=== PATIENT | female | born 1940 | race Caucasian/White ===

== ENCOUNTER 2020-06-23 05:01 | Emergency (ER) | payer MEDICARE ==
[2020-06-23] MEDS ORDERED: Sodium Chloride 0.9% 10 ML Syringe FLUSH PRN (05:22)
--- NOTE | 2020-06-23 05:30 | EDM.PDOC ---
ED HPI GENERAL MEDICAL PROBLEM - General Stated Complaint: CHEST PAIN Time Seen by Provider: 06/23/20 05:27 Source of Information: Reports: Patient History Limitations: Reports: No Limitations - History of Present Illness INITIAL COMMENTS - FREE TEXT/NARRATIVE: 80 yo white female with complaints of sudden onset of chest pain this morning when she woke up to use the bathroom. She describes it as heaviness,and pressure in the chest,associated with nausea,and lightheadedness.She took ASA,and nitro was given by EMS,which seemed to alleviate the symptoms. Love has a h/o of GERD, HTN,CKD,CHF,with recent reduction of her Lasix dose( Wednesday) due to worsening kidney function - Related Data Allergies Allergy/AdvReac Type Severity Reaction Status Date / Time codeine Allergy Cannot Verified 06/23/20 07:13 Remember doxycycline Allergy Cannot Verified 06/23/20 07:13 Remember erythromycin base Allergy Cannot Verified 06/23/20 07:13 [Erythromycin Base] Remember hydrocodone Allergy Cannot Verified 06/23/20 07:13 Remember indomethacin Allergy Cannot Verified 06/23/20 07:13 Remember loratadine [From Claritin] Allergy Cannot Verified 06/23/20 07:13 Remember Penicillins Allergy Cannot Verified 06/23/20 07:13 Remember propoxyphene Allergy Cannot Verified 06/23/20 07:13 Remember ED ROS GENERAL - Review of Systems Review Of Systems: Comprehensive ROS is negative, except as noted in HPI. ED EXAM, GENERAL - Physical Exam Exam: See Below Exam Limited By: No Limitations General Appearance: Alert, WD/WN, No Apparent Distress Ears: Normal External Exam Nose: Normal Inspection Throat/Mouth: Normal Inspection Head: Atraumatic Neck: Normal Inspection Respiratory/Chest: No Respiratory Distress, Lungs Clear Cardiovascular: Normal Peripheral Pulses, Regular Rate, Rhythm Extremities: Normal Inspection EKG INTERPRETATION Rhythm: NSR [place]: Normal QRS: LBBB Comparison: NA - No Prior EKG Course - Vital Signs Last Recorded V/S: Last Vital Signs Temp Pulse Resp BP 106/55 L 06/23/20 06:13 Pulse Ox - Orders/Labs/Meds Orders: Active Orders 24 hr Category Date Time Status EKG Documentation Completion [RC] ASDIRECTED Care 06/23/20 05:22 Active Chest 1V Frontal [CR] Stat Exams 06/23/20 05:22 Taken PRO B-TYPE NATRIUR PEPT,BNPPRO [CHEM] Stat Lab 06/23/20 06:20 Received Sodium Chloride 0.9% [Saline Flush] Med 06/23/20 05:22 Active 10 ml FLUSH ASDIRECTED PRN Peripheral IV Insertion Adult [OM.PC] Routine Oth 06/23/20 05:22 Ordered EKG 12 Lead [EK] Routine Ther 06/23/20 05:22 Ordered Medication Orders Sodium Chloride (Saline Flush) 10 ml FLUSH ASDIRECTED PRN PRN Reason: Keep Vein Open Labs: Laboratory Tests 06/23/20 06/23/20 06/23/20 Range/Units 06:20 06:20 06:20 WBC 7.2 (4.5-12.0) X10-3/uL RBC 3.86 (3.23-5.20) x10(6)uL Hgb 11.7 (11.5-15.5) g/dL Hct 34.8 (30.0-51.3) % MCV 90.2 (80-96) fL MCH 30.3 (27.7-33.6) pg MCHC 33.6 (32.2-35.4) g/dL RDW 13.1 (11.5-15.5) % Plt Count 278 (125-369) X10(3)uL MPV 6.7 L (7.4-10.4) fL Neut % (Auto) 55.8 (46-82) % Lymph % (Auto) 19.1 (13-37) % [place] % (Auto) 10.2 (4-12) % Eos % (Auto) 14 H (1.0-5.0) % Baso % (Auto) 1 (0-2) % Neut # (Auto) 4.1 (1.6-8.3) # Lymph # (Auto) 1.4 (0.6-5.0) # [place] # (Auto) 0.7 (0.0-1.3) # Eos # (Auto) 1.0 H (0.0-0.8) # Baso # (Auto) 0.0 (0.0-0.2) # Sodium 137 (135-145) mmol/L Potassium 4.0 (3.5-5.3) mmol/L Chloride 102 (100-110) mmol/L Carbon Dioxide 24 (21-32) mmol/L BUN 31 H (7-18) mg/dL Creatinine 4.5 H* (0.55-1.02) mg/dL Est Cr Clr Drug Dosing TNP Estimated GFR (MDRD) 9 L (>60) BUN/Creatinine Ratio 6.9 L (9-20) Glucose 93 (80-116) mg/dL Calcium 9.1 (8.6-10.2) mg/dL Troponin I 537.4 H* (4.0-60.3) pg/mL Meds: Medications Generic Name Dose Route Start Last Admin Trade Name Freq PRN Reason Stop Dose Admin Sodium Chloride 10 ml 06/23/20 05:22 Saline Flush FLUSH ASDIRECTED PRN Keep Vein Open Discontinued Medications Generic Name Dose Route Start Last Admin Trade Name Freq PRN Reason Stop Dose Admin Nitroglycerin 0.4 mg 06/23/20 06:12 06/23/20 06:13 Nitrostat SL 06/23/20 06:13 0.4 mg ONETIME ONE Administration Departure - Departure Time of Disposition: 07:13 Disposition: DC/Tfer to Acute Hospital 02 Reason for Transfer *Q: Primary PCI Indicated Condition: Good Clinical Impression: Chest pain Referrals: Neo Garcia MD [Primary Care Provider] - Sepsis Event Note (ED) - Focused Exam Vital Signs: Vital Signs BP 06/23/20 06:13 106/55 L - Problem List & Annotations (1) Chest pain SNOMED Code(s): 38887931 Code(s): R07.9 - CHEST PAIN, UNSPECIFIED Status: Acute Current Visit: Yes Qualifiers: Chest pain type: chest pain on breathing Qualified Code(s): R07.1 - Chest pain on breathing; R07.81 - Pleurodynia (2) CKD (chronic kidney disease) SNOMED Code(s): 536506505 Code(s): N18.9 - CHRONIC KIDNEY DISEASE, UNSPECIFIED Status: Acute Current Visit: Yes Qualifiers: Chronic kidney disease stage: stage 2 (mild) Qualified Code(s): N18.2 - Chronic kidney disease, stage 2 (mild) (3) CKD (chronic kidney disease) SNOMED Code(s): 302592523 Code(s): N18.9 - CHRONIC KIDNEY DISEASE, UNSPECIFIED Status: Acute Current Visit: Yes Qualifiers: Chronic kidney disease stage: stage 3 (moderate) Qualified Code(s): N18.3 - Chronic kidney disease, stage 3 (moderate) (4) NSTEMI (non-ST elevated myocardial infarction) SNOMED Code(s): 59729993 Code(s): I21.4 - NON-ST ELEVATION (NSTEMI) MYOCARDIAL INFARCTION Status: Acute Current Visit: Yes - Problem List Review Problem List Initiated/Reviewed/Updated: Yes - My Orders Last 24 Hours: My Active Orders 06/23/20 05:22 EKG Documentation Completion [RC] ASDIRECTED Chest 1V Frontal [CR] Stat Sodium Chloride 0.9% [Saline Flush] 10 ml FLUSH ASDIRECTED PRN Peripheral IV Insertion Adult [OM.PC] Routine EKG 12 Lead [EK] Routine 06/23/20 06:20 PRO B-TYPE NATRIUR PEPT,BNPPRO [CHEM] Stat - Assessment/Plan Last 24 Hours: My Active Orders 06/23/20 05:22 EKG Documentation Completion [RC] ASDIRECTED Chest 1V Frontal [CR] Stat Sodium Chloride 0.9% [Saline Flush] 10 ml FLUSH ASDIRECTED PRN Peripheral IV Insertion Adult [OM.PC] Routine EKG 12 Lead [EK] Routine 06/23/20 06:20 PRO B-TYPE NATRIUR PEPT,BNPPRO [CHEM] Stat Plan: I called Cardiology,they recommend heparin drip,ASA,and a transfer to the [facility] [place].
[2020-06-23] MEDS: Nitroglycerin 0.4 MG Tab.SL SL ONE (06:13)
[2020-06-23 06:14] VITALS: BP 106/55
[2020-06-23] MEDS: Heparin Sodium 5,000 Units/ML Vial IVPUSH ONE (07:45)
[2020-06-23] MEDS: Heparin Sodium/0.45% NaCl 25,000 UNITS/500 ML BAG IV SCH (07:47)
== END 2020-06-23 08:25 ==
LOC: FB.ED 05:01
DX: R07.89 Other chest pain (principal); R42 Dizziness and giddiness; I13.0 Hypertensive heart and chronic kidney disease with heart failure and stage 1 through stage 4 chronic kidney disease, or unspecified chronic kidney disease; I50.9 Heart failure, unspecified; N18.9 Chronic kidney disease, unspecified; R11.0 Nausea; Z88.5 Allergy status to narcotic agent; Z88.1 Allergy status to other antibiotic agents; Z88.8 Allergy status to other drugs, medicaments and biological substances; Z88.0 Allergy status to penicillin
CPT/HCPCS: 36415; 71045; 80048; 83880; 84484; 85025; 85610; 85730; 93005; 93010; 96365; 99285; 99285-25; A9270-GY; J1644

== ENCOUNTER 2020-09-19 08:54 | Emergency (ER) | payer MEDICARE ==
[~2020-09-19 08:54] MED LIST: EPINEPHrine 1:10,000 1 MG/10 ML Syringe IVPUSH ONE
[2020-09-19] MEDS ORDERED: Amiodarone 150 MG/3 ML SDV IVPUSH ONE (08:56)
[2020-09-19] MEDS ORDERED: Atropine 0.1 MG/ML 10 ML Syringe IVPUSH ONE (09:16)
[2020-09-19] MEDS ORDERED: Midazolam 1 MG/ML 2 ML SDV ONE (09:36)
[2020-09-19 09:37] LABS: HCO3 VENOUS,POC 18 mmol/L (21-29); PCO2 VENOUS,POC 74 mmHg (41-51)
[2020-09-19 09:38] LABS: BASE EXCESS VENOUS,POC -13 mmol/L (-2-3)
[2020-09-19] MEDS ORDERED: Norepinephrine 4 MG in Dextrose 5% in Water 246 ML IV SCH ×2 (09:38)
[2020-09-19] MEDS ORDERED: Sodium Bicarbonate 8.4% 50 MEQ/50 ML Syringe IVPUSH ONE (09:39)
[2020-09-19] MEDS ORDERED: Midazolam 1 MG/ML 2 ML SDV IVPUSH ONE ×2 (09:43→09:45)
--- NOTE | 2020-09-19 11:36 | PCM.SN.2 ---
- Free Text/Narrative Note: [facility] Time: 0854 to 0950 Date: 09/19/2020 Dx: Active Cardiopulmonary Resuscitation. Rx: Upon arrival, the patient was in active CPR with SGA in place. Her pupils were dilated and non-reactive to light. She had bilateral breath sounds but very decreased. I initially ventilated her using an Ambu-Bag thru the SGA. Several minutes later after the ED physician felt a pulse, he requested intubation. INTUBATION: After removing the SGA, I proceeded to intubate this patient using a #3 Glidescope and #7.5 ETT X 1 attempt. I had bilateral breath sounds and a positive continuous EtCO2 return. It was secured at 22 cm to the lip. A CXR was done later with the tube in good position. VENTILATION and MANAGEMENT: I continued to manage her ventilation manually with a continuous EtCO2 / Ambu-Bag 100% oxygention. I did give 2 mg's Versed IV later on due to patient sedation. I kept her CO2 above 28 mmHg and her SpO2 greater than 90%. I did recheck her ETT placement with bilateral breath sounds [course]. Her pupils toward the end were now a 3 bilaterally reactive to light. The family decided to continue with comfort care only. I extubated this patient at approximately 0950 per the ER physician's direction. Noé Fernandez CRNA, [facility]
--- NOTE | 2020-09-22 11:11 | EDM.PDOC ---
ED HPI GENERAL MEDICAL PROBLEM - General Chief Complaint: CPR in Progress Time Seen by Provider: 09/19/20 08:55 Source of Information: Reports: EMS, EMS Notes Reviewed History Limitations: Reports: Other (CPR) - History of Present Illness INITIAL COMMENTS - FREE TEXT/NARRATIVE: pt comes from her home by EMS/ CPR in progress, time she became unresponsive at home was 8:10 am , on arrival of EMS pt was noted to be in variable rhythm / VF also she had PEA , she was shocked twice in rout to hospital and was given 2 epis , on arrival at 8:45 am pt had no BP and no pulse/ puipils were fixed and dilated, on monitor she has PEA, pt has IO and fluids are running and pt is ventilated using Ambu bag thrue SGA, CPR continued, a third epi was given on repeat check pt was noted to have peripheral pules and on monitor she has sinus tachycardia , pt was then intubated and was also given 150 amiodarone and 1 amp of bicarb . BP was restored at 130s systolic...later own BP started dropping and Levophed was started. arrangements were then intiated to transport pt to [place]. at that time family members arrived / 2 daughters , and while visiting with them and updating them with pt condition and the plan, they have indicated that pt has previous ( unsigned ) wishes to be a no code, one of the daughters stated she has POA, and both daughters requested that resuscitation efforts be stopped and proceeding only with comfort care as those would have been there mother wishes. at that point pt was extubated , and pressers were stopped ... and at 10 :23 pt has pt has Hx of extensive CAD and CHF, last known EF is 25% ... Likely cause of is cardiac arrest. - Related Data Allergies Allergy/AdvReac Type Severity Reaction Status Date / Time acetaminophen Allergy Cannot Verified 06/23/20 19:38 [From Lorcet (hydrocodone)] Remember celecoxib [From Celebrex] Allergy Headache Verified 06/23/20 19:35 codeine Allergy Cannot Verified 06/23/20 07:13 Remember doxycycline Allergy Cannot Verified 06/23/20 07:13 Remember erythromycin base Allergy Nausea Verified 06/23/20 19:37 [Erythromycin Base] hydrochlorothiazide Allergy Cannot Verified 06/23/20 19:39 [From Maxzide] Remember hydrocodone Allergy Cannot Verified 06/23/20 07:13 Remember indomethacin Allergy Cannot Verified 06/23/20 07:13 Remember lisinopril Allergy Cannot Verified 06/23/20 19:38 Remember loratadine [From Claritin] Allergy Dizziness Verified 06/23/20 19:35 naproxen Allergy Hives Verified 06/23/20 19:34 Penicillins Allergy Cannot Verified 06/23/20 07:13 Remember propoxyphene Allergy Cannot Verified 06/23/20 07:13 Remember Proton Pump Inhibitors Allergy Cannot Verified 06/23/20 19:39 Remember rofecoxib [From Vioxx] Allergy Cannot Verified 06/23/20 19:40 Remember Sulfa (Sulfonamide Allergy Rash Verified 06/23/20 19:40 Antibiotics) triamterene [From Maxzide] Allergy Cannot Verified 06/23/20 19:39 Remember doxycycline Allergy Dizziness Uncoded 06/23/20 19:37 Home Meds: Home Meds Calcium Carbonate/Vitamin D3 [Calcium 600 + Vit D 200] 2 tab PO DAILY 06/23/20 [History] Carboxymethylcellulose Sodium [Refresh Tears 0.5% Ophth Soln] 1 drop EYEBOTH BID 06/23/20 [History] Furosemide [Lasix] 40 mg PO DAILY 06/23/20 [History] Latanoprost [Xalatan] 1 drop EYEBOTH BEDTIME 06/23/20 [History] Multivitamin 1 each PO DAILY 06/23/20 [History] Omeprazole 20 mg PO DAILY 06/23/20 [History] Potassium Chloride [Klor-Con 8] 16 meq PO DAILY 06/23/20 [History] calcitrioL [Calcitriol] 0.25 mcg PO DAILY 06/23/20 [History] ED ROS GENERAL - Review of Systems Review Of Systems: Unable To Obtain Reason Not Obtained: CPR ED EXAM, CPR - Physical Exam Exam: Not Obtained (CPR/ see HPI note) Course - Vital Signs Text/Narrative:: see HPI documentation - Orders/Labs/Meds Labs: Laboratory Tests 09/19/20 09/19/20 09/19/20 Range/Units 08:55 08:55 08:55 WBC 8.4 (3.0-10.3) x10-3/uL RBC 3.47 L (3.60-5.20) x10(6)uL Hgb 11.1 L (11.4-15.5) g/dL Hct 35.7 (34.2-48.2) % MCV 102.9 H (76.7-100.5) fL MCH 32.0 (23.9-33.9) pg MCHC 31.1 L (31.9-34.8) g/dL RDW 14.2 (12.3-16.5) % Plt Count 282 (151-488) x10(3)uL MPV 7.5 (7.1-12.4) fL Add Manual Diff Yes Neutrophils % (Manual) 29 L (46-82) % Band Neutrophils % 2 (0-6) % Lymphocytes % (Manual) 53 H (13-37) % Monocytes % (Manual) 8 (4-12) % Eosinophils % (Manual) 6 H (0-5) % Metamyelocytes % 2 H (0-0) % Microcytosis Occasional POC VBG pH (7.32-7.43) pH Units POC VBG pCO2 (41-51) mmHg POC VBG HCO3 (21-29) mmol/L VBG Base Excess (-2-3) mmol/L O2 Delivery Device Sodium 141 (135-145) mmol/L Potassium 3.7 (3.5-5.3) mmol/L Chloride 103 (100-110) mmol/L Carbon Dioxide 26 (21-32) mmol/L BUN 20 H D (7-18) mg/dL Creatinine 3.0 H* (0.55-1.02) mg/dL Est Cr Clr Drug Dosing TNP Estimated GFR (MDRD) 15 L (>60) BUN/Creatinine Ratio 6.7 L (9-20) Glucose 228 H D (80-116) mg/dL Calcium 9.1 (8.6-10.2) mg/dL Total Bilirubin 0.4 (0.1-1.3) mg/dL AST 95 H (5-25) IU/L ALT 84 H (12-36) U/L Alkaline Phosphatase 72 (56-112) IU/L Troponin I 79.6 H* (4.0-60.3) pg/mL NT-Pro-B Natriuret Pep 03873 H* (<=450) pg/mL Total Protein 6.2 (6.0-8.0) g/dL Albumin 2.9 L (3.2-4.6) g/dL Globulin 3.3 g/dL Albumin/Globulin Ratio 0.9 1210/20 Range/Units 09:20 WBC (3.0-10.3) x10-3/uL RBC (3.60-5.20) x10(6)uL Hgb (11.4-15.5) g/dL Hct (34.2-48.2) % MCV (76.7-100.5) fL MCH (23.9-33.9) pg MCHC (31.9-34.8) g/dL RDW (12.3-16.5) % Plt Count (151-488) x10(3)uL MPV (7.1-12.4) fL Add Manual Diff Neutrophils % (Manual) (46-82) % Band Neutrophils % (0-6) % Lymphocytes % (Manual) (13-37) % Monocytes % (Manual) (4-12) % Eosinophils % (Manual) (0-5) % Metamyelocytes % (0-0) % Microcytosis POC VBG pH 7.00 L* (7.32-7.43) pH Units POC VBG pCO2 74 H (41-51) mmHg POC VBG HCO3 18 L (21-29) mmol/L VBG Base Excess -13 L (-2-3) mmol/L O2 Delivery Device Resuscitation bag Sodium (135-145) mmol/L Potassium (3.5-5.3) mmol/L Chloride (100-110) mmol/L Carbon Dioxide (21-32) mmol/L BUN (7-18) mg/dL Creatinine (0.55-1.02) mg/dL Est Cr Clr Drug Dosing Estimated GFR (MDRD) (>60) BUN/Creatinine Ratio (9-20) Glucose (80-116) mg/dL Calcium (8.6-10.2) mg/dL Total Bilirubin (0.1-1.3) mg/dL AST (5-25) IU/L ALT (12-36) U/L Alkaline Phosphatase (56-112) IU/L Troponin I (4.0-60.3) pg/mL NT-Pro-B Natriuret Pep (<=450) pg/mL Total Protein (6.0-8.0) g/dL Albumin (3.2-4.6) g/dL Globulin g/dL Albumin/Globulin Ratio Meds: Medications Discontinued Medications Generic Name Dose Route Start Last Admin Trade Name Smiley PRN Reason Stop Dose Admin Amiodarone HCl 150 mg 09/19/20 08:56 09/19/20 09:08 Cordarone IVPUSH 09/19/20 08:57 150 mg ONETIME ONE Administration Atropine Sulfate 0.5 mg 09/19/20 09:16 09/19/20 09:16 Atropine 0.1 Mg/Ml IVPUSH 09/19/20 09:17 0.5 mg ONETIME ONE Administration Epinephrine HCl 1 mg 09/19/20 08:53 09/19/20 08:54 Epinephrine 1:10,000 IVPUSH 09/19/20 08:54 1 mg ONETIME ONE Administration Norepinephrine Bitartrate 4 mg 250 mls @ 7.5 mls/hr 09/19/20 09:38 09/19/20 09:40 / Dextrose/Water IV 8 mcg/min TITRATE MARYCRUZ 30 mls/hr Titration Protocol 2 MCG/MIN Midazolam HCl Confirm 09/19/20 09:36 09/19/20 21:48 Versed 1 Mg/Ml Administered 09/19/20 09:37 Not Given Dose 2 mg .ROUTE .STK-MED ONE Midazolam HCl 1 mg 09/19/20 09:43 09/19/20 09:16 Versed 1 Mg/Ml IVPUSH 09/19/20 09:44 1 mg ONETIME ONE Administration Midazolam HCl 1 mg 09/19/20 09:45 09/19/20 09:43 Versed 1 Mg/Ml IVPUSH 09/19/20 09:46 1 mg ONETIME ONE Administration Sodium Bicarbonate 50 meq 09/19/20 09:39 09/19/20 09:39 Sodium Bicarbonate 8.4% IVPUSH 09/19/20 09:40 50 meq ONETIME ONE Administration Departure - Departure Time of Disposition: 10:25 Disposition: 20 Preliminary Cause of *Q: Cardiac Arrest Clinical Impression: Cardiac arrest - Discharge Information Referrals: Neo Garcia MD [Primary Care Provider] - Forms: ED Department Discharge
== END 2020-09-19 10:23 | disposition expired ==
LOC: FB.ED 08:54
DX: I46.9 Cardiac arrest, cause unspecified (principal); Z88.6 Allergy status to analgesic agent; Z88.1 Allergy status to other antibiotic agents; Z88.5 Allergy status to narcotic agent; Z88.8 Allergy status to other drugs, medicaments and biological substances; Z88.0 Allergy status to penicillin; Z88.2 Allergy status to sulfonamides
CPT/HCPCS: 31500; 36415; 51702; 71045; 80053; 83880; 84484; 85025; 92950; 93005; 96374; 96375; 99285; 99285-25; J0171; J0282; J0461; J2250; J7060